=== PATIENT | female | born 1995 | race Two or more races ===

== ENCOUNTER 2017-09-11 12:39 | Emergency (ER) | payer OTHER ==
[2017-09-11 12:42] VITALS: BP 136/85; PULSE 79; TEMP 98; BMI 37.0
--- NOTE | 2017-09-11 14:23 | PDOC ---
History of Present Illness - General Chief Complaint: Injury Stated Complaint: RT KNEE PAIN Time Seen by Provider: 09/11/17 13:01 History Source: Patient Exam Limitations: No Limitations - History of Present Illness Initial Comments: 09/11/17 14:23 22-year-old female presents to the emergency room with complaints of right knee pain. Patient states was at work when her knee twisted causing her to land on her knee. Patient states unable to walk but has discomfort with bending. Patient denies previous injury to the affected area, radiation of pain, sensory changes distal of injury. Patient states took Motrin prior to arrival which did alleviate her discomfort. Occurred: reports: yesterday Severity: reports: moderate Pain Location: reports: lower extremity Method of Injury: Yes: fall Modifying Factors: improves with: None Loss of Consciousness: no loss of consciousness Associated Symptoms (Fall): trouble walking Past History - Travel Traveled outside of the country in the last 30 days: No Close contact w/someone who was outside of country & ill: No - Past Medical History Allergies/Adverse Reactions: Allergies Allergy/AdvReac Type Severity Reaction Status Date / Time No Known Allergies Allergy Verified 09/11/17 12:43 Home Medications: Ambulatory Orders NK [No Known Home Medication] 09/11/17 COPD: No - Suicide/Smoking/Psychosocial Hx Smoking History: Never smoked Hx Alcohol Use: No Drug/Substance Use Hx: No Patient Lives Alone: No Lives with/in: spouse/SO Review of Systems - Review of Systems Able to Perform ROS?: Yes Constitutional: No: Symptoms Reported HEENTM: No: Symptoms Reported Respiratory: No: Symptoms reported Cardiac (ROS): No: Symptoms Reported ABD/GI: No: Symptoms Reported : No: Symptoms Reported Musculoskeletal: Yes: Joint Pain (right knee), Joint Swelling (right knee) Integumentary: No: Symptoms Reported Neurological: No: Symptoms reported Hematologic/Lymphatic: No: Symptoms Reported *Physical Exam - Vital Signs Last Vital Signs Temp Pulse Resp BP Pulse Ox 98.0 F 79 20 136/85 97 09/11/17 12:40 09/11/17 12:40 09/11/17 12:40 09/11/17 12:40 09/11/17 12:40 - Physical Exam General Appearance: Yes: Nourished, Appropriately Dressed. No: Apparent Distress Vascular Pulses: Doralis-Pedis (L): 2+ Extremity: positive: Normal Capillary Refill, Normal Range of Motion, Tender ( right meniscus. mild edema over the patella. No Crepitus no deformity) Integumentary: positive: Normal Color, Warm, Moist Neurologic: positive: Motor Strength 5/5 (ambulatory) ED Treatment Course - RADIOLOGY Radiology Studies Ordered: Category Date Time Status KNEE 3 POS-RIGHT [RAD] Stat Radiology 09/11/17 13:24 Completed Medical Decision Making - Medical Decision Making 09/11/17 14:00 Patient with right knee injury. Patient with right joint effusion along with tenderness over the right meniscus. Patient ordered for x-ray if negative will send home with knee immobilizer and with orthopedic referral. *DC/Admit/Observation/Transfer Diagnosis at time of Disposition: Knee pain, right Qualifiers: Chronicity: acute Qualified Code(s): M25.561 - Pain in right knee - Discharge Dispostion Disposition: HOME Condition at time of disposition: Good - Referrals Referrals: Cheri Cotton MD [Primary Care Provider] - Willard Little MD [Staff Physician] - - Patient Instructions Printed Discharge Instructions: DI for Knee Pain Additional Instructions: Please use knee immobilizer during the day and remove at night. May take Motrin or Tylenol for discomfort every 6-8 hours and elevate as much as you can applying ice to the affected area for the next 2-3 days. If symptoms continue despite above recommendations in the next 5 days please call referred orthopedist. - Post Discharge Activity
== END 2017-09-11 14:34 | disposition home or self-care (01) ==
LOC: JERFT 12:39
PROC: 2W3QX1Z Immobilization of Right Lower Leg using Splint (ICD-10-PCS; principal; 2017-09-11)
DX: M25.561 Pain in right knee (principal); X58.XXXA Exposure to other specified factors, initial encounter; Y93.89 Activity, other specified; Y92.9 Unspecified place or not applicable; Y99.0 Civilian activity done for income or pay
CPT/HCPCS: 73562-TC-RT; 99281-25